=== PATIENT | female | born 1975 | race Caucasian/White ===

== ENCOUNTER 2024-04-11 19:39 | Emergency (ER) | payer OTHER, SELFPAY ==
[2024-04-11 19:42] VITALS: BP 149/108; PULSE 126; RESP 20; TEMP 36.6; O2SAT 100
== END 2024-04-12 00:21 | disposition left against medical advice (07) ==
DX: M79.605 Pain in left leg (principal)
CPT/HCPCS: 99199

== ENCOUNTER 2024-04-12 01:40 | Emergency (ER) | payer SELFPAY ==
--- NOTE | ~2024-04-12 | XR_ITS ---
XR knee LT 3V 04/12/2024 08:44 INDICATION: Left knee pain PROCEDURE: 3 views left knee COMPARISON: No prior studies for comparison. FINDINGS: Fracture, dislocation or subluxation is not identified. No significant joint effusion. The soft tissues appear within normal limits. No foreign bodies are identified. IMPRESSION: 1: NO ACUTE BONE OR JOINT ABNORMALITY IDENTIFIED. Reviewed, dictated and finalized at location B.
--- NOTE | ~2024-04-12 | US_ITS ---
EXAMINATION:US venous doppler LE LT INDICATION:Left leg pain and swelling TECHNIQUE: Multiple grayscale, color flow and Doppler images of the left lower extremity deep venous systems were obtained and reviewed. COMPARISON:No prior studies for comparison. FINDINGS: The common femoral, superficial femoral and popliteal veins demonstrate normal respiratory variation, augmentation and compressibility. Color flow is also seen within the posterior tibial, pe roneal, greater saphenous and profunda veins. IMPRESSION: 1: No lower extremity deep venous thrombosis. Reviewed, dictated and finalized at location B.
[2024-04-12 01:43] VITALS: BP 132/86; PULSE 111; RESP 15; TEMP 36.3; O2SAT 100
[2024-04-12 07:40] VITALS: BP 141/91; PULSE 90; RESP 20; O2SAT 99
[2024-04-12 07:54] VITALS: RESP 20; O2SAT 100
--- NOTE | 2024-04-12 08:04 | PC.NURSE ---
[place] propped under L knee for comfort. Pt reports improvement.
--- NOTE | 2024-04-12 08:06 | ED.GENADULT ---
HPI - General Adult General Chief complaint: Unspecified Stated complaint: blood clot concern, pain behind left knee Time Seen by Provider: 04/12/24 08:06 Source: patient Mode of arrival: ambulatory Limitations: no limitations History of Present Illness HPI narrative: 48 YEARS OLD WHITE FEMALE COMPLAINING OF PAIN AND POSSIBLE SWELLING AT THE LEFT KNEE POSTERIORLY OVER 2 WEEKS. PATIENT DENIES ANY TRAUMA. PATIENT DENIES ANY PAIN AT THE CALF MUSCLES OR CHEST PAIN OR SHORTNESS OF BREATH. Related Data Allergies Allergy/AdvReac Type Severity Reaction Status Date / Time cortisone Allergy Rash Verified 04/12/24 07:42 NO KNOWN DRUG ALLERGIES Allergy Y Uncoded 01/05/03 13:00 (Class Allergy) Review of Systems Review of Systems: All systems reviewed & are unremarkable except as noted in HPI and below PMFSH Family History Family History Mother Family history of seizure disorder Other Family history of dementia Social History Social History Smoking status: Never smoker Alcohol intake: never Exam Narrative: GENERAL APPEARANCE: WELL-DEVELOPED, WELL-NOURISHED SKIN: NORMAL COLOR HEAD: NORMOCEPHALIC, NONTRAUMATIC EYES: CLEAR CONJUNCTIVA ENT: OROPHARYNX NORMAL, EARS NORMAL, NOSE NORMAL NECK: SUPPLE, NONTENDER CHEST AND RESPIRATORY: AIRWAY PATENT, NO RESPIRATORY DISTRESS, NO ACCESSORY MUSCLE USE HEART: REGULAR RATE/RHYTHM ABDOMEN: SOFT, NONTENDER, NO ORGANOMEGALY, QUIET BOWEL SOUNDS VASCULAR: NORMAL PERIPHERAL PULSES, NORMAL CAPILLARY REFILL. MUSCULOSKELETAL: KNEE EXAMINATION SHOWED NO SWELLING, NO BRUISES, NO WARMTH, SLIGHTLY TENDER POSTERIORLY AT THE LEFT SIDE, SLIGHT LIMITED RANGE OF MOTION ON THE LEFT SIDE, NO SWELLING. NEUROLOGIC: ALERT AND ORIENTED ?3, FILLER MIXER IS NORMAL TESTED, NO GROSS MOTOR DEFICIT Course Vital Signs Vital signs: Vital Signs Temperature 36.3 C L 04/12/24 01:43 Pulse Rate 111 H 04/12/24 01:43 Respiratory Rate 15 04/12/24 01:43 Blood Pressure 132/86 04/12/24 01:43 Pulse Oximetry 100 04/12/24 01:43 Oxygen Delivery Room Air 04/12/24 01:43 Temperature 36.3 C L 04/12/24 01:43 Pulse Rate 90 04/12/24 07:40 Respiratory Rate 20 04/12/24 07:54 Blood Pressure 141/91 H 04/12/24 07:40 Pulse Oximetry 100 04/12/24 07:54 Oxygen Delivery Room Air 04/12/24 07:40 Medical Decision Making MDM Narrative Medical decision making narrative: PATIENT PRESENTS WITH PAIN AT THE LEFT KNEE POSTERIORLY, NO TRAUMA VITAL SIGNS ARE STABLE PHYSICAL EXAMINATION SHOWED SLIGHT TENDERNESS AND NO SWELLING OR BRUISES AT THE LEFT KNEE POSTERIORLY DIFFERENTIAL DIAGNOSIS INCLUDE ARTHRITIS, ASTUDILLO CYST, LESS LIKELY DEEP VEIN THROMBOSIS X-RAY OF THE LEFT KNEE SHOWED NO ACUTE ABNORMALITY VENOUS DOPPLER LEFT LOWER EXTREMITY SHOWED NO DEEP VEIN THROMBOSIS PATIENT WAS ADVISED TO USE KNEE BRACE, AND TAKE ANTI-INFLAMMATORY MEDICATION NEEDED. THE PT WAS DISCHARGED TO HOME.THE PT,S CONDITION UPON DISCHARGE WAS FAIR,EDUCATION WAS PROVIDED TO THE PT IN REFERENCE TO THE FINAL IMPRESSION,DISCHARGE STUDY RESULTS,TREATMENT,PROGNOSIS AND NEED FOR FOLLOW UP . Vital Signs Vital Signs: Vital Signs Temperature 36.3 C L 04/12/24 01:43 Pulse Rate 111 H 04/12/24 01:43 Respiratory Rate 15 04/12/24 01:43 Blood Pressure 132/86 04/12/24 01:43 Pulse Oximetry 100 04/12/24 01:43 Oxygen Delivery Room Air 04/12/24 01:43 Temperature 36.3 C L 04/12/24 01:43 Pulse Rate 90 04/12/24 07:40 Respiratory Rate 20 04/12/24 07:54 Blood Pressure 141/91 H 04/12/24 07:40 Pulse Oximetry 100 04/12/24 07:54
[2024-04-12 08:23] LABS: Basophils Absolute Auto 0.1 K/mm3 (0.0-0.1); Basophils Percent Auto 0.9 % (0.2-1.2); Eosinophils Absolute Auto 0.1 K/mm3 (0-0.3); Eosinophils Percent Auto 1.7 % (0-4.4); Hemoglobin 12.6 g/dL (12.0-15.0); Immature Granulocyte Absolute 0.01 K/mm3 (0.00-0.031); Immature Granulocyte Percent A 0.2 % (0-0.5); Lymphocytes Absolute Auto 1.81 K/mm3 (0.9-3.2); Lymphocytes Percent Auto 33.3 % (18.3-44.2); Mean Corpuscular HGB Conc 34.1 g/dl (32-36); Mean Corpuscular Hemoglobin 31.4 pg (26-34); Mean Corpuscular Volume 92.3 fl (80-100); Mean Platelet Volume 9.2 fl (7.4-10.4); Monocytes Absolute Auto 0.5 K/mm3 (0.1-0.6); Neutrophils Percent Auto 54.9 % (45.5-73.1); Platelet Count Result 224 k/mm3 (150-375); Red Blood Count 4.01 M/mm3 (4.2-5.4); Red Cell Distribution Width 13.3 % (11.5-14.5); White Blood Count 5.4 K/mm3 (4.5-10.0)
[2024-04-12 08:43] LABS: Anion Gap 8 mmol/L (4-12); Blood Urea Nitrogen 26 mg/dL (7-17); Calcium 8.7 mg/dL (8.4-10.2); Carbon Dioxide 24 mmol/L (22-30); Chloride 103 mmol/L (98-107); Estimated CRCL calculation 72 ml/min; Estimated Glomerular Filt Rate > 60; Glucose 81 mg/dL (65-110); Sodium 135 mmol/L (137-145)
[2024-04-12 09:18] LABS: INR 0.9; Prothrombin Time 13.1 Seconds (11.1-14.7)
== END 2024-04-12 09:44 | disposition home or self-care (01) ==
PROVIDERS: Emergency Provider Emergency Medicine
DX: M25.562 Pain in left knee (principal)
CPT/HCPCS: 36415; 73562; 80048; 85025; 85610; 85730; 93971; 99284